=== PATIENT | male | born 1955 | race African-American/Black ===

== ENCOUNTER → 2016-10-22 | Outpatient (CLI) | payer MEDICARE, OTHER ==
[2015-11-14 05:45] VITALS: BP 101/48
[~2016-10-22] MED LIST: ASPI81TA2 PO; CLOP75TA27 PO; ELBA1TAB PO; HYDR453.3 TP; IBUP800T PO; MIDO10TA PO; OXYC-323 PO; PANT20TA2 PO; PHOS250T PO; PROM25TA10 PO; [UNRECOGNIZED DRUG - OTHER]
[2016-10-22 10:35] LABS: BASO # 0.1 x10^3/uL (0.0-0.2); BASO % 2 % (0-3); EOS # 0.5 x10^3/uL (0.0-0.7); EOS % 7 % (0-3); HEMOGLOBIN 11.9 g/dL (13.0-17.5); LYMPH # 1.3 x10^3/uL (1.0-4.8); LYMPH % 17 % (24-48); MEAN CORPUSCULAR HEMOGLOBIN 34 pg (25-35); MEAN CORPUSCULAR HGB CONC 34 g/dL (31-37); MEAN CORPUSCULAR VOLUME 101 fL (79-100); MONO # 0.5 x10^3/uL (0.0-1.1); MONO % 6 % (0-9); NEUT # 5.2 x10^3uL (1.8-7.7); NEUT % 68 % (31-73); PLATELET COUNT 250 x10^3/uL (140-400); RED BLOOD COUNT 3.46 x10^6/uL (4.30-5.70); RED CELL DISTRIBUTION WIDTH 14.4 % (11.5-14.5); WHITE BLOOD COUNT 7.7 x10^3/uL (4.0-11.0)
[2016-10-22 10:56] LABS: ALBUMIN 3.8 g/dL (3.4-5.0); CALCIUM 7.9 mg/dL (8.5-10.1); CREATININE 8.7 mg/dL (0.7-1.3); GFR 7.6; POTASSIUM 4.6 mmol/L (3.5-5.1); TOTAL BILIRUBIN 0.4 mg/dL (0.2-1.0); TOTAL PROTEIN 7.7 g/dL (6.4-8.2)
== END | disposition home or self-care (01) ==
LOC: LAB 09:48
PROVIDERS: ATTEND Nurse Practitioner Adult Health
DX: B18.2 Chronic viral hepatitis C (principal)
CPT/HCPCS: 80053; 85027; 85610

== ENCOUNTER 2020-08-08 21:28 | Emergency (ER) | payer MEDICARE, OTHER ==
[~2020-08-08] VITALS: Ht 182.9 cm; Wt 78.0 kg
[~2020-08-08 21:28] MED LIST changes: +ASPI-630 PO; -ASPI81TA2 PO; -CLOP75TA27 PO; +CLOP75TA57 PO; -IBUP800T PO; +IBUP800T19 PO; -OXYC-323 PO; +OXYC1TAB15 PO; -PANT20TA2 PO; +PANT20TA58 PO
--- NOTE | 2020-08-08 21:37 | PHYS DOC ---
Past History Past Medical History: Alcoholism, Diabetes, Hypertension, Hypotension, Renal Disease, Renal Failure, Other Past Medical History HD Fri Past Surgical History: Other Smoking: Cigarettes Alcohol Use: Occasionally Drug Use: Marijuana General Adult EDM: Chief Complaint: ABDOMINAL PAIN HPI: HPI: " Only did the Jacks and coke.. only three.. I do that much all.. the time..... but I smoked some shit for lst time.. It fucked up my mind.. ".. " I do dialysis three days a weekl.. "...." I got it Friday.."..." Maybe you could just give me some fluids.." Patient is a 65 year old male who presents with complaints of mental status change after drinking etoh and smoking marijuana. . Patient no history of end- stage renal disease and on hemodialysis. Patient states he has been compliant with his dialysis on Wednesdays and Fridays. Has past medical history of hypertension, diabetes, episodes of postdialysis hypotension. Does have a history of peripheral vascular disease and has in the past been on Plavix does not know if he takes that today. Patient does continue to smoke cigarettes. Patient states of very confused after smoking reportedly marijuana. States he is never smoked marijuana before. Patient states he normally drinks at least 3 mixed drinks a night. Patient is scheduled for dialysis this morning. Review of Systems: Review of Systems: Constitutional: Denies fever or chills Eyes: Denies change in visual acuity HENT: Denies nasal congestion or sore throat Respiratory: Denies cough or shortness of breath Cardiovascular: Denies chest pain or edema GI: Denies abdominal pain, nausea, vomiting, bloody stools or diarrhea : Denies dysuria Musculoskeletal: Denies back pain or joint pain Integument: Denies rash Neurologic: Denies headache, focal weakness or sensory changes . States of altered state due to intoxication and marijuana use Endocrine: Denies polyuria or polydipsia Lymphatic: Denies swollen glands Psychiatric: Denies depression or anxiety Family History: Family History: Noncontributory to presentation Current Medications: Current Meds: See nursing for home meds Allergies: Allergies: Allergies Coded Allergies Type Severity Reaction Last Updated Verified Iodinated Contrast Media - IV Dye Allergy Intermediate 11/06/13 Yes Physical Exam: PE: Constitutional: Mild acute distress, intoxicated in appearance. [] HENT: Normocephalic, atraumatic, bilateral external ears normal, oropharynx moist, no oral exudates, nose normal. [] Eyes: PERRLA, EOMI, conjunctiva pale, no discharge. [] Neck: Normal range of motion, no tenderness, supple, no stridor. [] Cardiovascular:Heart rate regular rhythm, no murmur [, PMI to left Lungs & Thorax: Bilateral breath sounds equal apex with scattered wheezes. Some basilar crackles bilaterally auscultation [] Abdomen: Bowel sounds normal, soft, no tenderness, no masses, no pulsatile masses. [] Skin: Warm, dry, no erythema, no rash. [] Back: No tenderness, no CVA tenderness. [] Extremities: No tenderness, no cyanosis, no clubbing, ROM intact, no edema. [Shunt left arm has good thrill Neurologic: Alert and oriented X 3, moves all extremities on request, has distal sensory,, no focal deficits noted. [] Psychologic: Affect anxious, judgement normal, mood normal. Complains of intoxication from alcohol and marijuana [] EKG: EKG: My interpretation EKG shows sinus rhythm at 73 bpm. Some nonspecific T wave changes. Slightly prolonged QT interval at 436 ms. QTC is 484 ms. No findings acute STEMI with contralateral changes [] Radiology/Procedures: Radiology/Procedures: [][address] [address] IMAGING REPORT Signed PATIENT: KESHAV ANTONIO MACCOUNT: [id number] : 1955 LOCATION: ER AGE: 65 SEX: M EXAM STATUS: PRE ER ORD. PHYSICIAN: CHETAN RAMÍREZ MD REASON: mental status change PROCEDURE: CT HEAD WO CONTRAST Exam: CT head INDICATION: Mental status change TECHNIQUE: Sequential axial images through the head were obtained without the administration of IV contrast. Comparisons: 09/19/2015 FINDINGS: No focal parenchymal lesion or hemorrhage is identified. There is no midline shift or sulcal effacement. Mild patchy hypodensity in the periventricular white matter, overall similar when compared to the prior study. No acute vascular territory infarction is identified. [place]-white distinction is preserved. The ventricular system is within normal limits without compression hydrocephalus. The basal cisterns are well maintained. The visualized portions of the paranasal sinuses and mastoid air cells are well- pneumatized. No acute fractures. IMPRESSION: No acute intracranial abnormality. Exposure: One or more of the following in the visualized dose reduction techniques were utilized for this examination: 1. Automated exposure control 2. Adjustment of the MA and/or KV according to patient size Use of iterative of reconstructive technique Electronically signed by: Harriett Oquendo MD (08/08/2020 10:23 PM) [facility] DICTATED AND SIGNED BY: HARRIETT OQUENDO MD DATE: 08/08/202218 CC: CHETAN RAMÍREZ MD; NON,STAFF ~MTH0 0 Heart Score: HEART Score for Chest Pain: HEART Score for Chest Pain Response (Comments) Value History Slighlty/Non-Suspicious 0 ECG Normal 0 Age >45 - < 65 1 Risk Factors 1 or 2 Risk Factors 1 Troponin < Normal Limit 0 Total 2 Risk Factors: Risk Factors: DM, Current or recent (<one month) smoker, HTN, HLP, family history of CAD, obesity. Risk Scores: Score 0 - 3: 2.5% MACE over next 6 weeks - Discharge Home Score 4 - 6: 20.3% MACE over next 6 weeks - Admit for Clinical Observation Score 7 - 10: 72.7% MACE over next 6 weeks - Early Invasive Strategies Course & Med Decision Making: Course & Med Decision Making Pertinent Labs and Imaging studies reviewed. (See chart for details) Pt. mentation clearing over his observation in ED Patient avoid further polysubstance abuse. Patient keep hemodialysis appointment this morning. Patient return if any concerns. Patient discharged to care of brother. Impression: 1. Polysubstance Abuse 2. Alcohol Intoxication 187 3. ESRD- HD- due in AM 4. Anemia of chronic disease hemoglobin 9.4 5. BUN 81 creatinine 12 6. Pulmonary edema BNP 24,091 [] Dragon Disclaimer: Dragon Disclaimer: This electronic medical record was generated, in whole or in part, using a voice recognition dictation system. Departure Departure: Referrals: NON,STAFF (PCP) Dragon Disclaimer This chart was dictated in whole or in part using Voice Recognition software in a busy, high-work load, and often noisy Emergency Department environment. It may contain unintended and wholly unrecognized errors or omissions. Dragon Disclaimer This chart was dictated in whole or in part using Voice Recognition software in a busy, high-work load, and often noisy Emergency Department environment. It may contain unintended and wholly unrecognized errors or omissions. Dragon Disclaimer This chart was dictated in whole or in part using Voice Recognition software in a busy, high-work load, and often noisy Emergency Department environment. It may contain unintended and wholly unrecognized errors or omissions. CHETAN RAMÍREZ MD Aug 08, 2020 21:36
[2020-08-08] MEDS ORDERED: THIAMINE IM 200 MG/2 ML VIAL. IM ONE (22:00)
--- NOTE | 2020-08-08 22:25 | RAD ---
XR CHEST 1V Clinical History: Reason: hx esrd, dyspnea / Spl. Instructions: / History: Technique: AP view of the chest was obtained at 08/08/2020 10:01 PM. Comparison: September 19, 2015. Findings: The cardiomediastinal silhouette is normal. The pulmonary vasculature is normal. The lungs and pleura l margins are clear. There are vascular stents seen previously. Impression: No evidence of an acute cardiopulmonary process. Electronically signed by: Adonis Flores III, MD (08/08/2020 10:23 PM) [facility]
--- NOTE | 2020-08-08 22:25 | RAD ---
Exam: CT head INDICATION: Mental status change TECHNIQUE: Sequential axial images through the head were obtained without the administration of IV co ntrast. Comparisons: 09/19/2015 FINDINGS: No focal parenchymal lesion or hemorrhage is identified. There is no midline shift or sulcal effaceme nt. Mild patchy hypodensity in the periventricular white matter, overall similar when compared to the marla or study. No acute vascular territory infarction is identified. [place]-white distinction is preserved. The ventricular system is within normal limits without compression hydrocephalus. The basal cisterns are well maintained. The visualized portions of the paranasal sinuses and mastoid air cells are well-pneumatized. No acute fractures. IMPRESSION: No acute intracranial abnormality. Exposure: One or more of the following in the visualized dose reduction techniques were utilized for this examination: 1. Automated exposure control 2. Adjustment of the MA and/or KV according to patient size Use of iterative of reconstructive technique Electronically signed by: Zi June MD (08/08/2020 10:23 PM) [facility]
[2020-08-08 22:28] LABS: BASO # 0.1 x10^3/uL (0.0-0.2); BASO % 1 % (0-3); EOS # 0.5 x10^3/uL (0.0-0.7); EOS % 6 % (0-3); HEMATOCRIT 28.1 % (39.0-53.0); HEMOGLOBIN 9.4 g/dL (13.0-17.5); LYMPH # 1.6 x10^3/uL (1.0-4.8); LYMPH % 21 % (24-48); MEAN CORPUSCULAR HEMOGLOBIN 34 pg (25-35); MEAN CORPUSCULAR HGB CONC 34 g/dL (31-37); MEAN CORPUSCULAR VOLUME 100 fL (79-100); MONO # 0.7 x10^3/uL (0.0-1.1); MONO % 9 % (0-9); NEUT # 4.9 x10^3uL (1.8-7.7); NEUT % 63 % (31-73); PLATELET COUNT 298 x10^3/uL (140-400); RED CELL DISTRIBUTION WIDTH 13.6 % (11.5-14.5); WHITE BLOOD COUNT 7.8 x10^3/uL (4.0-11.0)
--- NOTE | 2020-08-08 22:30 | EKG ---
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
[2020-08-08 22:40] LABS: CALCIUM 7.3 mg/dL (8.5-10.1); GFR 5.2; POTASSIUM 3.4 mmol/L (3.5-5.1)
[2020-08-09 01:02] VITALS: BP 91/44
== END 2020-08-09 01:05 | disposition home or self-care (01) ==
LOC: ER 21:28
DX: F19.10 Other psychoactive substance abuse, uncomplicated (principal); F10.129 Alcohol abuse with intoxication, unspecified; D63.8 Anemia in other chronic diseases classified elsewhere; E11.22 Type 2 diabetes mellitus with diabetic chronic kidney disease; I12.0 Hypertensive chronic kidney disease with stage 5 chronic kidney disease or end stage renal disease; N18.6 End stage renal disease; F17.210 Nicotine dependence, cigarettes, uncomplicated; F12.10 Cannabis abuse, uncomplicated; J81.1 Chronic pulmonary edema; Z99.2 Dependence on renal dialysis; Z91.041 Radiographic dye allergy status; Y90.6 Blood alcohol level of 120-199 mg/100 ml
CPT/HCPCS: 36415; 70450; 71045; 80048; 82550; 83880; 84484; 85025; 85610; 85730; 93005; 96372; 99285; G0480